=== PATIENT | female | born 1995 | race Caucasian/White ===

== ENCOUNTER 2020-04-27 12:48 | Emergency (ER) | payer MEDICAID, SELFPAY ==
--- OUTSIDE RECORDS SUMMARY | 2020-04-27 12:50 | XMS REPORT | Continuity of Care Document ---
:1995 Author Organization [facility] t Address [address] [place] [address] Care Team Providers Name Role Phone Johanna Sams Attending Clinician Problems This patient has no known problems. Allergies, Adverse Reactions, Alerts This patient has no known allergies or adverse reactions. Medications This patient has no known medications. Procedures This patient has no known procedures. Encounters Start End Encounter Admission Attending Care Care Encounter Source Date/Time Date/Time Type Type Clinicians Facility Department ID 2020-03-12 2020-03-12 Emergency E [id number] [facility] 12:27:00 12:27:00 [facility] 2019 Telephone [facility] [id number] 00:00:00 00:00:00 Renee Spencer INSOLE COVERER [id number] [facility] [id number] MATERNAL [id number] & CHILD 107 [facility] 2019-09-25 2019-09-25 Telephone [facility] [id number] 00:00:00 00:00:00 Renee Spencer INSOLE COVERER [id number] [facility] [id number] MATERNAL [id number] & CHILD 107 [facility] 2019-09-24 2019-09-24 Office [facility] [id number] 13:38:53 15:00:57 Visit Renee Spencer INSOLE COVERER [id number] [facility] [id number] MATERNAL [id number] & CHILD 107 [facility] [place] Results This patient has no known results.
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
--- NOTE | 2020-04-27 15:44 | RAD REPORT ---
EXAM DESCRIPTION: RAD - Ankle Right 3 View - 04/27/2020 3:14 pm CLINICAL HISTORY: PAIN COMPARISON: No comparisons FINDINGS: No fracture, dislocation or periosteal reaction. No joint effusion seen. No joint space na rrowing. Surgical hardware is in place from prior distal tibia fracture repair. No fracture or suspic ious finding of the fixation hardware. Fractures are well-healed. Remodeling changes of the distal fi bula are related to prior trauma. No abnormal soft tissue swelling. No foreign body or calcification in the soft tissues. IMPRESSION: As detailed above, right ankle shows no acute bone, joint or soft tissue finding.
[2020-04-27 17:55] VITALS: TEMP 99
[2020-04-27 18:07] VITALS: BP 103/64; O2SAT 100
== END 2020-04-27 15:43 | disposition home or self-care (01) ==
LOC: ER 12:48
DX: M25.571 Pain in right ankle and joints of right foot (principal); Z88.1 Allergy status to other antibiotic agents
CPT/HCPCS: 99283